=== PATIENT | female | born 1960 | race Caucasian/White ===

== ENCOUNTER → 2023-08-07 16:15 | Outpatient (REF) | payer BC, SELFPAY | LOC: HWWDC 16:15 | PROVIDERS: ATTENDING PHYSICIAN Nurse Practitioner | DX: Z12.31 Encounter for screening mammogram for malignant neoplasm of breast (principal) | CPT/HCPCS: 77063; 77067 ==

== ENCOUNTER → 2023-11-10 14:41 | Outpatient (REF) | payer BC, SELFPAY | LOC: WDC 14:41 | PROVIDERS: ATTENDING PHYSICIAN Nurse Practitioner | DX: R92.2 Inconclusive mammogram (principal) | CPT/HCPCS: 76641 ==

== ENCOUNTER → 2024-05-21 11:39 | Outpatient (REF) | payer BC, SELFPAY | LOC: HWRAD 11:39 | PROVIDERS: ATTENDING PHYSICIAN Nurse Practitioner Adult Health | DX: E04.1 Nontoxic single thyroid nodule (principal) | CPT/HCPCS: 76536 ==

== ENCOUNTER → 2024-11-29 11:21 | Outpatient (REF) | payer BC, SELFPAY | LOC: HWRAD 11:21 | PROVIDERS: ATTENDING PHYSICIAN Otolaryngology; FAMILY PHYSICIAN Nurse Practitioner Adult Health | DX: M54.2 Cervicalgia (principal); K21.9 Gastro-esophageal reflux disease without esophagitis | CPT/HCPCS: 76536 ==

== ENCOUNTER → 2025-01-14 06:40 | Outpatient (REF) | payer BC, SELFPAY | LOC: PAVMRI 06:40 | PROVIDERS: ATTENDING PHYSICIAN Podiatrist Foot & Ankle Surgery; FAMILY PHYSICIAN Nurse Practitioner Adult Health | DX: M84.363A Stress fracture, right fibula, initial encounter for fracture (principal); M66.371 Spontaneous rupture of flexor tendons, right ankle and foot | CPT/HCPCS: 73721 ==